=== PATIENT | female | born 2000 | race Caucasian/White ===

== ENCOUNTER 2021-11-16 15:31 | Emergency (ER) | payer OTHER ==
[2021-11-16] MEDS ORDERED: Acetaminophen 325 MG Tab PO ONE (15:44)
[2021-11-16] MEDS ORDERED: Ondansetron 4 MG Tab.DIS PO ONE (15:44)
[2021-11-16] MEDS ORDERED: hydrOXYzine HCl 25 MG Tab PO ONE (15:51)
== END 2021-11-16 16:08 | disposition home or self-care (01) ==
LOC: VM.ED 15:31
DX: S06.0X0A Concussion without loss of consciousness, initial encounter (principal); Z88.8 Allergy status to other drugs, medicaments and biological substances; V49.10XA Passenger injured in collision with unspecified motor vehicles in nontraffic accident, initial encounter; Y92.410 Unspecified street and highway as the place of occurrence of the external cause
CPT/HCPCS: 99283; A9270-GY